=== PATIENT | male | born 1985 | race Caucasian/White ===

== ENCOUNTER 2018-09-07 13:00 | Outpatient (RCR) | payer OTHER, SELFPAY ==
[2018-06-05 09:52] VITALS: BMI 53.8
== END 2018-09-08 23:59 ==
LOC: NS 13:00
PROVIDERS: PCP Internal Medicine; Visit Provider Internal Medicine
DX: E66.01 Morbid (severe) obesity due to excess calories (principal); Z68.43 Body mass index [BMI] 50.0-59.9, adult; Z71.3 Dietary counseling and surveillance
CPT/HCPCS: 97802; 97803

== ENCOUNTER 2018-09-24 11:04 | Outpatient (RCR) | payer OTHER, SELFPAY ==
[2018-06-05 09:52] VITALS: BMI 53.8
== END 2018-10-09 23:59 ==
LOC: NS 11:04
PROVIDERS: PCP Internal Medicine; Visit Provider Internal Medicine
DX: E66.01 Morbid (severe) obesity due to excess calories (principal); Z68.43 Body mass index [BMI] 50.0-59.9, adult; Z71.3 Dietary counseling and surveillance
CPT/HCPCS: 97803

== ENCOUNTER 2018-10-26 11:42 | Outpatient (RCR) | payer OTHER, SELFPAY ==
[2018-06-05 09:52] VITALS: BMI 53.8
== END 2018-11-08 23:59 ==
LOC: NS 11:42
PROVIDERS: PCP Internal Medicine; Visit Provider Internal Medicine
DX: E66.01 Morbid (severe) obesity due to excess calories (principal); Z68.43 Body mass index [BMI] 50.0-59.9, adult; Z71.3 Dietary counseling and surveillance
CPT/HCPCS: 97803

== ENCOUNTER → 2018-11-04 10:28 | Outpatient (CLI) | payer OTHER, SELFPAY ==
[2018-06-05 09:52] VITALS: BMI 53.8
[2018-11-04 11:29] LABS: Absolute Lymphocyte Count 1.77 X10^3/ul (0.83-4.51); Absolute Neutrophil Count 3.3 X10^3/uL (2.0-7.7); Basophil# 0.05 X10^3/uL; Basophil% 0.8 % (0-1); Eosinophil# 0.35 X10^3/uL; Eosinophils% 5.7 % (0-5); Hemoglobin 16.1 g/dl (13.0-16.5); Lymphocyte # 1.77 X10^3/ul (4.0); Lymphocyte % 28.9 % (19-41); Mean Corpuscular Hgb 29.4 pg (27.0-32.0); Mean Corpuscular Volume 83.9 fL (80-94); Mean Platelet Vol. 9.9 fl (6.2-12.0); Monocyte# 0.58 X10^3/uL; Monocyte% 9.5 % (0-10); Neutrophil # 3.34 X10^3/uL (2.7-7.7); Neutrophil % 54.4 % (47-70); Platelet Count 285 K/mm3 (150-450); RBC Distribution Width CV 13.8 % (11.6-14.6); RBC Distribution Width SD 42.2 fl (35.1-43.9); Red Blood Count 5.48 M/mm3 (4.6-6.2); White Blood Count 6.1 K/mm3 (4.4-11.0)
[2018-11-04 11:31] LABS: POSITIVE COUNT NO; POSITIVE DIFFERENTIAL NO; POSITIVE MORPHOLOGY NO
[2018-11-04 11:57] LABS: Hemoglobin A1c 5.3 % (4.2-6.3)
[2018-11-04 12:01] LABS: ALB/GLOB Ratio 1.1 RATIO (0.9-2.4); AST(SGOT) 17 U/L (15-37); Alanine Aminotransfer ALT/SGPT 27 U/L (16-61); Albumin, Serum 3.7 g/dL (3.2-5.0); Alkaline Phosphatase 58 U/L (45-117); Anion Gap 5 (5-15); BUN 14 mg/dL (7-18); BUN/Creat Ratio 17.5 RATIO (10-20); Chloride 111 mmol/L (98-107); Cholesterol 132 mg/dL (200); EST Glomerular Filtration Rate 119 mL/min (>60); Est Glom Filt Rate - Afr Amer 144 mL/min (>60); Globulin 3.4 g/dL (2.2-4.2); Glucose 96 mg/dL (74-106); High Density Lipoprotein 37 mg/dL; Potassium 4.1 mmol/L (3.5-5.1); Protein, Total 7.1 g/dL (6.4-8.2); Sodium Level 142 mmol/L (136-145); Thyroid Stim Hormone (TSH) 2.08 uIU/mL (0.358-3.74); Triglycerides 69 mg/dL; Very Low Density Lipoprotein 14 mg/dL (5-40)
== END ==
LOC: LAB 10:31
PROVIDERS: Family Provider Internal Medicine; PCP Internal Medicine; Referring Provider Internal Medicine; Visit Provider Internal Medicine
DX: E66.01 Morbid (severe) obesity due to excess calories (principal); Z68.43 Body mass index [BMI] 50.0-59.9, adult
CPT/HCPCS: 36415; 80053; 80061; 83036; 84443; 85025

== ENCOUNTER 2018-11-30 11:30 | Outpatient (RCR) | payer OTHER, SELFPAY ==
[2018-06-05 09:52] VITALS: BMI 53.8
== END 2018-11-30 23:59 | disposition home or self-care (01) ==
LOC: NS 11:30
PROVIDERS: Family Provider Internal Medicine; PCP Internal Medicine; Visit Provider Internal Medicine
DX: Z71.3 Dietary counseling and surveillance (principal); E66.01 Morbid (severe) obesity due to excess calories; Z68.43 Body mass index [BMI] 50.0-59.9, adult
CPT/HCPCS: 97803

== ENCOUNTER → 2020-02-16 09:45 | Outpatient (CLI) | payer MEDICAID, SELFPAY ==
[2018-06-05 09:52] VITALS: BMI 53.8
== END ==
PROVIDERS: PCP Family Medicine; Referring Provider Physician Assistant; Visit Provider Physician Assistant
DX: Z20.828 Contact with and (suspected) exposure to other viral communicable diseases (principal)
CPT/HCPCS: 87635; C9803; U0003

== ENCOUNTER → 2021-01-02 08:01 | Outpatient (CLI) | payer MEDICAID, SELFPAY ==
[2021-01-02 10:17] LABS: Absolute Lymphocyte Count 2.48 X10^3/uL (0.83-4.51); Absolute Neutrophil Count 3.7 X10^3/uL (2.0-7.7); Basophil# 0.11 X10^3/uL; Basophil% 1.5 % (0-1); Eosinophil# 0.34 X10^3/uL; Eosinophils% 4.6 % (0-5); Hematocrit 47.3 % (40-54); Hemoglobin 16.1 g/dL (13.0-16.5); Lymphocyte # 2.48 X10^3/ul (0.83-4.51); Lymphocyte % 33.2 % (19-41); Mean Corpuscular Hgb 30.2 pg (27.0-32.0); Mean Corpuscular Volume 88.7 fL (80-94); Mean Platelet Vol. 9.7 fl (6.2-12.0); Monocyte# 0.75 X10^3/uL; Monocyte% 10.1 % (0-10); NRBC Flagged by Analyzer 0 % (0-5); Neutrophil # 3.73 X10^3/uL (2.7-7.7); Neutrophil % 49.9 % (47-70); Platelet Count 293 K/mm3 (150-450); RBC Distribution Width CV 13.3 % (11.6-14.6); RBC Distribution Width SD 43.3 fl (35.1-43.9); Red Blood Count 5.33 M/mm3 (4.6-6.2); White Blood Count 7.5 K/mm3 (4.4-11.0)
[2021-01-02 10:39] LABS: ALB/GLOB Ratio 1.1 RATIO (0.9-2.4); AST(SGOT) 41 U/L (15-37); Alanine Aminotransfer ALT/SGPT 72 U/L (16-61); Alkaline Phosphatase 59 U/L (45-117); Anion Gap 5 (5-15); BUN 10 mg/dL (7-18); BUN/Creat Ratio 12.5 RATIO (10-20); Calcium,Total 8.9 mg/dL (8.5-10.1); Chloride 107 mmol/L (98-107); Cholesterol 157 mg/dL (200); EST Glomerular Filtration Rate 118 mL/min (>60); Est Glom Filt Rate - Afr Amer 143 mL/min (>60); Globulin 3.5 g/dL (2.2-4.2); Glucose 93 mg/dL (74-106); High Density Lipoprotein 36 mg/dL; Potassium 3.5 mmol/L (3.5-5.1); Protein, Total 7.5 g/dL (6.4-8.2); Sodium Level 140 mmol/L (136-145); Thyroid Stim Hormone (TSH) 2.27 uIU/mL (0.358-3.74); Triglycerides 100 mg/dL; Very Low Density Lipoprotein 20 mg/dL (5-40)
== END ==
PROVIDERS: PCP Family Medicine; Referring Provider Nurse Practitioner Family; Visit Provider Nurse Practitioner Family
DX: I10 Essential (primary) hypertension (principal); G47.33 Obstructive sleep apnea (adult) (pediatric); E66.01 Morbid (severe) obesity due to excess calories; Z68.43 Body mass index [BMI] 50.0-59.9, adult
CPT/HCPCS: 36415; 80053; 80061; 83036; 84443; 85025

== ENCOUNTER 2021-01-08 15:36 | Outpatient (RCR) | payer MEDICAID, SELFPAY ==
[2020-12-19 16:36] VITALS: BMI 53.8
== END 2021-01-09 23:59 ==
LOC: NS 15:36
PROVIDERS: PCP Family Medicine; Visit Provider Nurse Practitioner Family
DX: E66.01 Morbid (severe) obesity due to excess calories (principal); Z68.43 Body mass index [BMI] 50.0-59.9, adult
CPT/HCPCS: 97802

== ENCOUNTER → 2021-02-05 21:51 | Outpatient (CLI) | payer MEDICAID, SELFPAY ==
[2020-12-19 16:36] VITALS: BMI 53.8
== END ==
PROVIDERS: PCP Family Medicine; Visit Provider Nurse Practitioner Family
DX: G47.33 Obstructive sleep apnea (adult) (pediatric) (principal)
CPT/HCPCS: 95811

== ENCOUNTER 2021-05-13 15:20 | Emergency (ER) | payer MEDICAID, SELFPAY ==
[2021-05-13 15:21] VITALS: BP 172/107; PULSE 92; RESP 16; TEMP 36.1; O2SAT 96; BMI 54.2
== END 2021-05-13 16:55 | disposition left against medical advice (07) ==
LOC: ED 17:15
PROVIDERS: PCP Family Medicine
DX: M54.50 Low back pain, unspecified (principal); Z53.21 Procedure and treatment not carried out due to patient leaving prior to being seen by health care provider

== ENCOUNTER 2021-07-24 16:29 | Emergency (ER) | payer MEDICAID, SELFPAY ==
[2021-07-24 16:30] VITALS: BP 173/106; PULSE 89; RESP 18; TEMP 36.8; O2SAT 99; BMI 57.2
[2021-07-24 16:36] VITALS: PULSE 94; RESP 15
--- NOTE | 2021-07-24 16:47 | EKG12_ITS ---
Test Reason : CP Blood Pressure : / mmHG Vent. Rate : 087 BPM Atrial Rate : 087 BPM P-R Int : 182 ms QRS Dur : 104 ms QT Int : 380 ms P-R-T Axes : 053 021 054 degrees QTc Int : 457 ms Normal sinus rhythm Normal ECG Confirmed by MARY MAURICIO, CASSI ([id number]), editor at large TUCKER TOMAS ([id number]) on 07/26/2021 9:37:51 AM Referred By: FRANCISCO JAVIER/TENA Confirmed By:CASSI HERNANDEZ MD
--- NOTE | 2021-07-24 16:48 | ED.VIS.CHEST ---
HPI History of Present Illness Chief Complaint: Chest Pain Informant: patient Onset/Context/Timing Onset: Yesterday Activity at onset: - (Woke with pain yesterday more) Timing: Waxes and wanes Quality: Positive for Heaviness and Pressure Location: Substernal and Left Parasternal Current Severity: Moderate Maximum Severity: Moderate Associated Symptoms: Positive for - (Radiates to arms) Narrative Narrative: Patient presents with 2-day history of chest pain. He states he woke yesterday morning with upper chest pain that radiated down both arms. He thought he just slept wrong. He did not feel well all day yesterday. He went to bed around 4:30 in the afternoon after getting home from work. He went to work today but did not feel improved and his encouraged him to come in today to get checked. He does report some mild shortness of breath. PFSH [facility] Medical History Heart murmur History of pneumonia HTN (hypertension) KAUSHIK (obstructive sleep apnea) Tobacco abuse Home Medications amlodipine 5 mg tablet 5 mg PO DAILY #90 tab 02/06/21 [Rx Last Taken Unknown] potassium chloride 20 meq PO BID #8 tab 07/24/21 [Rx Last Taken Unknown] Allergy/AdvReac Type Severity Reaction Status Date / Time bupropion HCl Allergy Other Verified 07/24/21 16:31 [From Wellbutrin] tramadol HCl [From Ultram] Allergy Other Verified 07/24/21 16:31 Family History Grandmother Hypertension Surgical History History of carpal tunnel release History of tonsillectomy and adenoidectomy Social History Smoking Status: Current every day smoker tobacco type: cigarettes and smokeless tobacco Tobacco: How many years used: 13 alcohol intake: current alcohol intake frequency: holidays/special occasions only substance use type: does not use what type of physical activity do you participate in: weight training frequency: 5-6 times per week ROS ROS ED Constitutional Constitutional ED: Denies chills or fever(s) Eyes Eyes: Denies change in vision ENT ENT ED: Denies sore throat Cardiovascular Cardiovascular: Reports chest pain Respiratory/Chest Respiratory/Chest: Reports dyspnea; Denies cough Gastrointestinal Gastrointestinal: Denies abdominal pain, nausea or vomiting Genitourinary Genitourinary ED: Denies dysuria Musculoskeletal Musculoskeletal: Denies back pain Integumentary Denies rash Neurologic Neurologic: Denies headache(s) or weakness Psychiatric Psychiatric: Denies anxiety or depression Allergic/Immunologic Allergic/Immunologic ED: Denies urticaria EXAM Physical Exam Const Vital Signs: 07/24/21 16:30 07/24/21 16:36 07/24/21 17:06 Temperature 98.2 F Temperature Source Temporal Pulse Rate 89 94 Respiratory Rate 18 15 Respiratory Effort Normal Blood Pressure 173/106 H Blood Pressure Mean 128 Pulse Ox 99 Oxygen Delivery Method Room Air Room Air Room Air 07/24/21 19:14 Temperature Temperature Source Pulse Rate 83 Respiratory Rate 18 Respiratory Effort Blood Pressure Blood Pressure Mean Pulse Ox Oxygen Delivery Method Positive obese Nutritional Appearance: obese HEENT Reports moist mucous membranes Eyes PERRL and EOMs intact bilaterally Neck supple Chest Wall inspection of chest normal and palpation of chest normal Resp normal respiratory effort Effort and Inspection: respiratory distress Cardio regular rate and regular rhythm GI normal to inspection, nondistended, normoactive bowel sounds, soft to palpation and non-tender Extremity normal to inspection Neuro oriented x3 Sensorium / Orientation: awake and alert Psych mental status grossly normal Skin no rashes or lesions noted Heart Score History: Moderately Suspicious Age: </= 45 years Risk Factors: 1 or 2 Risk Factors Troponin: </= Normal Limit Score: 2 MDM MDM MDM Narrative Medical decision making narrative: Patient given aspirin on arrival. EKG, chest x-ray, lab work obtained. Lab Data Attestation: I reviewed the patient's lab results. Labs: Laboratory Results - last 24 hr 07/24/21 07/24/21 07/24/21 16:49 16:49 16:49 WBC 9.0 RBC 5.13 Hgb 15.2 Hct 43.2 MCV 84.2 MCH 29.6 MCHC 35.2 RDW Std Deviation 41.4 RDW Coeff of Theresa 13.4 Plt Count 263 MPV 9.1 Immature Gran % (Auto) 0.300 Neut % (Auto) 58.7 Lymph % (Auto) 30.0 [place] % (Auto) 6.0 Eos % (Auto) 4.1 Baso % (Auto) 0.9 Absolute Neuts (auto) 5.3 Absolute Lymphs (auto) 2.70 Nucleated RBC % 0 D-Dimer Quant (PE/DVT) < 0.27 L Sodium 141 Potassium 3.4 L Chloride 106 Carbon Dioxide 30.0 Anion Gap 5 BUN 9 Creatinine 0.86 Estim Creat Clear Calc 128.91 Est GFR (MDRD) Af Amer 131 Est GFR (MDRD) Non-Af 108 BUN/Creatinine Ratio 10.5 Glucose 121 H Calcium 9.2 Troponin I High Sens 6 07/24/21 18:57 WBC RBC Hgb Hct MCV MCH MCHC RDW Std Deviation RDW Coeff of Theresa Plt Count MPV Immature Gran % (Auto) Neut % (Auto) Lymph % (Auto) [place] % (Auto) Eos % (Auto) Baso % (Auto) Absolute Neuts (auto) Absolute Lymphs (auto) Nucleated RBC % D-Dimer Quant (PE/DVT) Sodium Potassium Chloride Carbon Dioxide Anion Gap BUN Creatinine Estim Creat Clear Calc Est GFR (MDRD) Af Amer Est GFR (MDRD) Non-Af BUN/Creatinine Ratio Glucose Calcium Troponin I High Sens 4 Radiography Chest X-Ray - ED: 1 View, Read by ED Physician, Normal, Heart, Lungs and Mediastinum Diagnostic Testing: Clinical Impression(s) from Imaging Studies Chest X-Ray 07/24/21 17:07 IMPRESSION: Normal x-ray examination of the chest. Electronically Signed: Kan Jonas MD at 17:30 EDT , EKG Initial EKG: Attestation: I personally reviewed and interpreted this EKG as follows: Interpretation: Sinus Rhythm (Sinus 87 with no acute ischemia.) Treatment and Re-Evaluation Narrative: On repeat evaluation patient resting comfortably. Test results discussed with him. Lab work reveals a slightly low potassium at 3.4. Initial troponin negative. D-dimer normal. Patient given oral potassium. Chest x-ray per my interpretation is unremarkable. Radiologist interpretation also reviewed. EKG reveals no ischemia. 2-hour delta troponin obtained and also negative. Patient be given 4 additional days of potassium replacement. Blood pressure prior to discharge is 125/63. Patient is to continue to take his blood pressure meds at home. Follow-up with his PCP. Return instructions provided. Discharge Plan Triage Chief Complaint: Chest Pain ED Provider: Minal Parmar Dx/Rx/DC Orders Clinical Impression: Chest pain, Hypokalemia Instructions: ED Chest Pain, Uncertain Cause, ED Hypokalemia Prescriptions: New potassium chloride 20 mEq tablet extended release 20 meq PO BID Qty: 8 RF: 0 No Action amlodipine 5 mg tablet 5 mg PO DAILY Qty: 90 RF: 1 Primary Care Provider: Mason Schmidt Referrals: Mason Schmidt, [Primary Care Provider] - 1 Week Disposition Disposition: Home, Self Care
[2021-07-24 16:56] LABS: Absolute Neutrophil Count 5.3 X10^3/uL (2.0-7.7); Basophil# 0.08 X10^3/uL; Basophil% 0.9 % (0-1); Eosinophil# 0.37 X10^3/uL; Eosinophils% 4.1 % (0-5); Hematocrit 43.2 % (40-54); Hemoglobin 15.2 g/dL (13.0-16.5); Mean Corp Hgb Conc 35.2 g/dL (32-36); Mean Corpuscular Hgb 29.6 pg (27.0-32.0); Mean Corpuscular Volume 84.2 fL (80-94); Mean Platelet Vol. 9.1 fl (6.2-12.0); Monocyte# 0.54 X10^3/uL; NRBC Flagged by Analyzer 0 % (0-5); Neutrophil # 5.29 X10^3/uL (2.7-7.7); Neutrophil % 58.7 % (47-70); Platelet Count 263 K/mm3 (150-450); RBC Distribution Width CV 13.4 % (11.6-14.6); RBC Distribution Width SD 41.4 fl (35.1-43.9); Red Blood Count 5.13 M/mm3 (4.6-6.2)
--- NOTE | 2021-07-24 16:58 | NURSING ---
NO OLD EKGS
[2021-07-24] MEDS: Aspirin 81 MG TAB.CHEW 324 MG PO (17:07)
--- NOTE | 2021-07-24 17:07 | RAD_ITS ---
STUDY: X-RAY CHEST REASON FOR EXAM: Male, 36 years old. Chest pain TECHNIQUE: Single AP portable view of the chest. COMPARISON: None. FINDINGS: The lungs are clear and expanded. There is no demonstrated pleural abnormality. Normal size heart. Normal mediastinum and priscilla. Normal visualized pulmonary arteries. Normal visualized aortic arch and descending thoracic aorta. Normal visualized thoracic spine. Normal visualized ribs, clavicles, and shoulders. There is no demonstrated abnormality of the visualized soft tissue structures of the upper abdomen. RAD/Chest 1 View (Portable) IMPRESSION: Normal x-ray examination of the chest. Electronically Signed: Kan Jonas MD at 17:30 EDT ,
[2021-07-24 17:13] LABS: D-Dimer Quantitative (DVT/PE) < 0.27 FEU/ug/m (0.27-0.49)
[2021-07-24 17:30] LABS: Anion Gap 5 (5-15); BUN 9 mg/dL (7-18); BUN/Creat Ratio 10.5 RATIO (10-20); Calcium,Total 9.2 mg/dL (8.5-10.1); Chloride 106 mmol/L (98-107); Creatinine, Serum 0.86 mg/dL (0.70-1.30); EST Glomerular Filtration Rate 108 mL/min (>60); Est Glom Filt Rate - Afr Amer 131 mL/min (>60); Estimated Creatinine Clearance 128.91 ml/min; Glucose 121 mg/dL (74-106); Potassium 3.4 mmol/L (3.5-5.1); Sodium Level 141 mmol/L (136-145); Troponin-I HS 6 pg/mL (3.0-78.0)
[2021-07-24] MEDS: Potassium Chloride Oral Tablet 20 MEQ 40 MEQ PO (18:08)
[2021-07-24 19:14] VITALS: PULSE 83; RESP 18
[2021-07-24 19:22] LABS: Troponin-I HS 4 pg/mL (3.0-78.0)
[2021-07-24 19:36] VITALS: BP 125/63
== END 2021-07-24 19:40 | disposition home or self-care (01) ==
PROVIDERS: Emergency Provider Emergency Medicine; PCP Family Medicine; Visit Provider Emergency Medicine
DX: R07.9 Chest pain, unspecified (principal); R06.02 Shortness of breath; E87.6 Hypokalemia; I10 Essential (primary) hypertension; G47.33 Obstructive sleep apnea (adult) (pediatric); F17.210 Nicotine dependence, cigarettes, uncomplicated; Z87.01 Personal history of pneumonia (recurrent)
CPT/HCPCS: 71045; 80048; 84484; 85025; 85379; 93005; 99285; A4216

== ENCOUNTER 2022-02-19 00:19 | Emergency (ER) | payer MEDICAID, SELFPAY ==
[2022-02-19 00:19] VITALS: BP 156/78; PULSE 75; RESP 20; TEMP 36.1; O2SAT 98; BMI 56.0
--- NOTE | 2022-02-19 00:51 | RAD_ITS ---
EXAM: XR RIGHT TIBIA AND FIBULA, 2 VIEWS CLINICAL INDICATION: injury/pain TECHNIQUE: Frontal and lateral views of the right tibia and fibula. This report was created using [employer] report generation technology. COMPARISON: Right knee radiographs of 11/06/2015 FINDINGS: BONES/JOINTS: Large posterior calcaneal spur is present. No acute fracture. No dislocation. Normal alignment. Preservation of the joint spaces. No sclerotic or destructive changes observed. SOFT TISSUES: No soft tissue swelling or gas. No radiopaque foreign body. A 5 mm linear opaque density is projected within the subcutaneous fat anterior to the proximal tibia, consistent with a small foreign body which was not present on the prior study. RAD/Tibia & Fibula 2 Views IMPRESSION: No acute fracture or dislocation. Small linear foreign body within the subcutaneous fat anterior to the proximal tibia. Electronically Signed: Ranjan Ferreira MD at 2:08 EDT ,
--- NOTE | 2022-02-19 00:52 | EDS_ITS ---
HPI History of Present Illness Chief Complaint: Lower Extremity Injury Informant: patient Occured/Mechanism Comment: Pain that started suddenly while walking up steps Onset/Context/Timing Onset: Yesterday Context: Sudden Onset Timing: Continuous Quality of Pain: Aching Location: Lateral aspect right lower leg Current Severity: Moderate Maximum Severity: Severe Worsened by: Weightbearing Relieved by: Remaining still/rest Associated Symptoms Associated Symptoms: Negative for Parasthesia, Weakness or Loss of Funtion Narrative Narrative: Patient states he had a sudden onset of pain in the lateral aspect of his right lower leg yesterday while he was walking up some steps. Weightbearing hurts more. Bending his knee and ankle do not hurt more. He states half a day after injuring it, it was extremely painful to even get out of bed. No radiation elsewhere, no numbness in his foot, no pain or injury elsewhere. [facility] Medical History Heart murmur History of pneumonia HTN (hypertension) KAUSHIK (obstructive sleep apnea) Tobacco abuse Home Medications NK 02/19/22 [History Last Taken Unknown] Allergy/AdvReac Type Severity Reaction Status Date / Time bupropion HCl Allergy Other Verified 02/19/22 00:22 [From Wellbutrin] tramadol HCl [From Ultram] Allergy Other Verified 02/19/22 00:22 Family History Grandmother Hypertension Surgical History History of carpal tunnel release History of tonsillectomy and adenoidectomy Social History Smoking Status: Current every day smoker tobacco type: cigarettes and smokeless tobacco Tobacco: How many years used: 13 alcohol intake: current alcohol intake frequency: holidays/special occasions only substance use type: does not use what type of physical activity do you participate in: weight training frequency: 5-6 times per week ROS ROS ED Constitutional Constitutional ED: Denies chills or fever(s) Musculoskeletal Musculoskeletal: Reports extremity pain; Denies neck pain Integumentary Denies Abrasions, rash or wounds Neurologic Neurologic: Denies paresthesias or weakness EXAM Physical Exam Const Vital Signs: 02/19/22 00:19 Temperature 97 F L Temperature Source Temporal Pulse Rate 75 Respiratory Rate 20 H Blood Pressure 156/78 H Blood Pressure Mean 104 Pulse Ox 98 Oxygen Delivery Method Room Air Positive well nourished and well developed Constitutional Narrative: Morbidly obese. General Appearance ED: well developed and NAD Neck full ROM and supple Back/Spine normal ROM and normal to inspection Extremity normal to inspection and full ROM Extremity Narrative: Mild tenderness right proximal fibula. No other areas of bony tenderness throughout the right lower extremity. Full range of motion of the knee and ankle without any pain or difficulty. No effusion at the knee. Neurovascularly intact distally. General Extremety ED: Yes weight-bearing difficulty General Extremity: weight-bearing difficulty Neuro oriented x3, no focal motor deficits and no sensory deficits noted Sensorium / Orientation: alert Psych mental status grossly normal and thought process normal Skin no wounds Rashes: no rashes MDM MDM MDM Narrative Medical decision making narrative: 4 view x-ray series of the right tibia/fibula are negative on my interpretation. No evidence of a fracture or dislocation. The ankle mortise is normal. Patient reassured, supportive care advised and close outpatient follow-up if not improving after a week. He does not have any neurologic symptoms to suggest compromise, his compartments are all soft and he does not have compartment syndrome at this time, nor does it seem like a DVT since he has no palpable cords or edema or calf pain. More likely muscular. Discharge Plan Triage Chief Complaint: Lower Extremity Injury ED Provider: Yuan Casey Dx/Rx/DC Orders Clinical Impression: Pain in right lower leg Instructions: ED Muscle Strain, Extremity Prescriptions: No Action NK Primary Care Provider: Franklyn Dorman Referrals: Mason Schmidt DO [Med Staff - [employer]] - 1 Week if not improving Disposition Disposition: Home, Self Care
== END 2022-02-19 01:49 | disposition home or self-care (01) ==
PROVIDERS: Emergency Provider Emergency Medicine; PCP Family Medicine; Visit Provider Emergency Medicine
DX: M79.661 Pain in right lower leg (principal); I10 Essential (primary) hypertension; G47.33 Obstructive sleep apnea (adult) (pediatric); F17.210 Nicotine dependence, cigarettes, uncomplicated
CPT/HCPCS: 73590; 99282

== ENCOUNTER 2022-12-31 15:47 | Observation (INO) | payer OTHER, MEDICAID, SELFPAY ==
[2022-12-31] VITALS (8 sets, daily range): BP systolic 111–152; BP diastolic 63–78; PULSE 68–92; RESP 13–22; TEMP 35.9–36.5; O2SAT 92–97; BMI 59.8; BMI 57.4
--- NOTE | 2022-12-31 16:53 | CT_ITS ---
We are attempting to reach an attending provider to discuss findings. An addendum with communication details will be sent when the communication is complete. STUDY: CTA HEAD AND NECK WITH CONTRAST REASON FOR EXAM: Male, 37 years old. Neuro deficit, acute, stroke suspected RADIATION DOSAGE (If Supplied By Facility): CTDIvol = ( 37.00 ) mGy, DLP = ( 2178.15 ) mGycm TECHNIQUE: CT angiography was performed with a multi-detector CT scanner. Data acquisition was obtained from the skull base through the vertex following intravenous administration of IV 100mL [id number]-[id number]. MIP images were reconstructed from the axial data set. Post-processing of the angiographic images was performed, with multiplanar reformation and 3D reconstruction. Individualized dose optimization techniques were used for this CT. COMPARISON: No relevant priors. FINDINGS: Normal bilateral petrous carotid arteries. Normal right cavernous carotid artery with a normal supraclinoid bifurcation. Normal left cavernous carotid artery with a normal supraclinoid bifurcation. Normal right A1 segments of the anterior cerebral artery. Normal left A1 segments of the anterior cerebral artery. Normal intact anterior communicating artery (ACOM). Normal bilateral A2 segments of the anterior cerebral arteries. Normal right M1 and M2 segments of the middle cerebral arteries, with a normal M1 bifurcation. Normal left M1 and M2 segments of the middle cerebral arteries, with a normal M1 bifurcation. Normal right posterior communicating artery (PCOM). Normal left posterior communicating artery (PCOM). Normal bilateral vertebral arteries. Normal basilar artery with a normal basilar bifurcation. The visualized bilateral superior cerebellar (SCA) arteries are normal. Normal bilateral P1, P2 and visualized P3 segments of the posterior cerebral arteries. There is no demonstrated aneurysm of the [place] of [place]. There is no demonstrated abnormality of the visualized brain. AORTIC ARCH: Normal visualized aortic arch. Normal origins of the brachiocephalic, left common carotid, and left subclavian arteries. RIGHT CAROTID ARTERIES: Normal right common carotid artery (CCA). Normal right common carotid bulb. Normal origin of the right internal carotid (ICA) artery without a hemodynamically significant stenosis. Normal visualized cervical portion of the right internal carotid artery. Normal origin of the right external carotid artery (ECA). LEFT CAROTID ARTERIES: Normal left common carotid artery (CCA). Normal left common carotid bulb. Normal origin of the left internal carotid (ICA) artery without a hemodynamically significant stenosis. Normal visualized cervical portion of the left internal carotid artery. Normal origin of the left external carotid artery (ECA). VERTEBRAL ARTERIES: Normal bilateral vertebral arteries. IMPRESSION: Normal CTA Head and neck with contrast. Electronically Signed: Jamey Haley MD at 18:20 EDT , INDICATION: Neuro deficit, acute, stroke suspected EXAMINATION: CT BRAIN - CT Head Stroke Protocol W/O Contrast Injection TECHNIQUE: Multiple axial images were obtained of the head without intravenous contrast. A radiation dose optimization technique was used for this scan. IV Contrast dosage and agent: None. COMPARISON: No relevant prior comparison study available FINDINGS: BRAIN PARENCHYMA: No intra- or extra-axial hemorrhage. No evidence of acute infarct. No intracranial mass or mass effect. There is preservation of the mandel/white matter interface. Posterior fossa structures are unremarkable. CSF SPACES: Appropriate for age. No hydrocephalus. Basal cisterns are patent. CALVARIUM, SKULL BASE, PARANASAL SINUSES AND MASTOID AIR CELLS: Clear. No discrete lytic or blastic abnormalities. ORBITS: Both globes, extraocular muscles, optic nerves and retrobulbar fat appear unremarkable. ASPECTS Score for Acute Strokes: 10 CT/STROKE CTA Head AND Neck W/Con IMPRESSION: Negative Brain CT without contrast. Electronically Signed: Jamey Haley MD at 18:24 EDT ,
[2022-12-31 17:13] LABS: Absolute Lymphocyte Count 2.25 X10^3/uL (0.83-4.51); Absolute Neutrophil Count 4.1 X10^3/uL (2.0-7.7); Basophil# 0.08 X10^3/uL; Basophil% 1.1 % (0-1); Eosinophil# 0.35 X10^3/uL; Eosinophils% 4.7 % (0-5); Hematocrit 45.3 % (40-54); Hemoglobin 15.7 g/dL (13.0-16.5); Lymphocyte # 2.25 X10^3/ul (0.83-4.51); Lymphocyte % 30.4 % (19-41); Mean Corp Hgb Conc 34.7 g/dL (32-36); Mean Corpuscular Hgb 31.2 pg (27.0-32.0); Mean Corpuscular Volume 89.9 fL (80-94); Monocyte# 0.61 X10^3/uL; Monocyte% 8.2 % (0-10); NRBC Flagged by Analyzer 0 % (0-5); Neutrophil # 4.06 X10^3/uL (2.7-7.7); Neutrophil % 54.9 % (47-70); Platelet Count 233 K/mm3 (150-450); RBC Distribution Width CV 13.9 % (11.6-14.6); RBC Distribution Width SD 45.6 fl (35.1-43.9); Red Blood Count 5.04 M/mm3 (4.6-6.2); White Blood Count 7.4 K/mm3 (4.4-11.0)
--- NOTE | 2022-12-31 17:17 | RAD_ITS ---
STUDY: X-RAY CHEST REASON FOR EXAM: Male, 37 years old. Neuro deficit, acute, stroke suspected TECHNIQUE: Single AP portable view of the chest. COMPARISON: 07/24/2021. FINDINGS: The lungs are clear and expanded. There is no demonstrated pleural abnormality. Normal size heart. Normal mediastinum and priscilla. Normal visualized pulmonary arteries. Normal visualized aortic arch and descending thoracic aorta. Normal visualized thoracic spine. Normal visualized ribs, clavicles, and shoulders. There is no demonstrated abnormality of the visualized soft tissue structures of the upper abdomen. RAD/Chest 1 View IMPRESSION: Normal x-ray examination of the chest. Electronically Signed: Jamey Haley MD at 17:34 EDT ,
--- NOTE | 2022-12-31 17:28 | EDS_ITS ---
HPI History of Present Illness Chief Complaint: Headache Narrative Narrative: 37-year-old male presenting with headache. He states he was sitting at his desk when he noticed he started to get a right-sided headache that radiated into the jaw on the jaw became numb. He states he felt a little bit lightheaded which resolved. He was able to get up and go out to start working and still complains of having a headache. He went to see the nurse at the facility and she did vital signs which were normal and sent him to the ER for further evaluation. Patient still complaining of numbness in the right side of the jaw. No slurred speech no confusion no visual deficits, able to use all 4 extremities. Patient states he does not have any history of stroke. He has past medical history of hypertension, sleep apnea, obesity. No cardiac history. He does not have any history of migraine. [facility] [place] Medical History Heart murmur History of pneumonia HTN (hypertension) KAUSHIK (obstructive sleep apnea) Tobacco abuse Home Medications NK 02/19/22 [History Last Taken Unknown] Allergy/AdvReac Type Severity Reaction Status Date / Time tramadol HCl [From Ultram] Allergy Unknown Other Verified 12/31/22 19:08 bupropion HCl Allergy seizures Verified 12/31/22 19:08 [From Wellbutrin] Family History Grandmother Hypertension Surgical History History of carpal tunnel release History of tonsillectomy and adenoidectomy Social History household members: family Smoking Status: Current every day smoker tobacco type: cigarettes and smokeless tobacco Tobacco: How many years used: 13 alcohol intake: current alcohol intake frequency: holidays/special occasions only substance use type: does not use what type of physical activity do you participate in: weight training frequency: 5-6 times per week ROS ROS ED Constitutional Constitutional ED: Denies chills, fever(s) or sweats Eyes Eyes: Denies blurry vision or change in vision ENT ENT ED: Denies ear pain or sore throat Cardiovascular Cardiovascular: Denies chest pain, palpitations or racing heartbeat Respiratory/Chest Respiratory/Chest: Denies cough, dyspnea or sputum Gastrointestinal Gastrointestinal: Denies abdominal pain, constipation, diarrhea, nausea or vomiting Genitourinary Genitourinary ED: Denies dysuria, hematuria or urinary frequency Musculoskeletal Musculoskeletal: Denies arthralgias, myalgias or neck pain Integumentary Denies abscess, Abrasions or rash Neurologic Neurologic: Reports headache(s) and other Details: Right jaw numbness ; Denies paresthesias or weakness Psychiatric Psychiatric: Denies anxiety, depression, suicidal ideation or suicidal thoughts Endocrine Endocrinology: Denies polydipsia or polyuria EXAM Physical Exam Const Vital Signs: 12/31/22 15:48 12/31/22 16:53 12/31/22 17:03 Temperature 96.7 F L Temperature Source Temporal Pulse Rate 76 82 Respiratory Rate 22 H 13 Blood Pressure 152/78 H 137/75 H Blood Pressure Mean 102 95 Pulse Ox 95 92 92 Oxygen Delivery Method Room Air Room Air 12/31/22 17:04 Temperature Temperature Source Pulse Rate 92 Respiratory Rate 18 Blood Pressure 137/75 H Blood Pressure Mean 95 Pulse Ox 92 Oxygen Delivery Method Room Air Positive well nourished General Appearance ED: NAD; Negative for pallor HEENT Reports normocephalic HEENT Narrative: No pain over right hoahaoism atraumatic and trauma Eyes PERRL and EOMs intact bilaterally Neck no lymphadenopathy and supple Resp normal respiratory effort Auscultation: Negative for rales, rhonchi or wheezes Cardio regular rate and regular rhythm Back/Spine no CVA tenderness Extremity normal to inspection and full ROM Neuro oriented x3 Marni Coma Scale: document GCS findings Spontaneous Obeys Commands Oriented 15 Sensorium / Orientation: awake and alert Coordination / Balance: [id number] test normal Speech: speech normal Motor Exam: strength 5/5 throughout Psych mental status grossly normal Skin General Skin Exam: Negative for jaundice or pallor NIHSS NIHSS Initial: 1a Level of Consciousness: 0 1b LOC Questions (Score 2 if aphasic/stupor): 0 1c LOC Commands (Only score 1st attempt): 0 2 Best Gaze (If aphasic, use reflexive mvmts.): 0 3 Visual: 0 4 Facial Palsy: 0 5 Motor Arm Right (UN = amputation/fusion): 0 5 Motor Arm Left: 0 6 Motor Leg Right: 0 6 Motor Leg Left: 0 7 Limb ataxia (Only + if out of proportion): 0 8 Sensory (Aphasia/stupor=0 or 1, coma=2): 1 9 Best Language: 0 10 Dysarthria (mute, coma=2, intubated=UN): 0 11 Extinction and Inattention (only scored if +): 0 Total Score: 1 MDM MDM MDM Narrative Medical decision making narrative: Patient presenting with headache and visual disturbance which resolved. Is now jaw numbness. Differential includes atypical migraine, intracranial hemorrhage, stroke, temporal arteritis. NIH stroke scale score of 1 for numbness on the jaw. Rest of his exam is normal. CBC will be obtained to assess white blood cell count, hemoglobin, platelets. PT/INR to assess for coagulopathy. Renal function electrolytes will be obtained. High-sensitivity troponin and EKG obtained to assess for ischemia or dysrhythmia. CRP and ESR be obtained. CT brain and CTA were obtained and were negative. CBC and BMP unremarkable. High- sensitivity troponin is 5. EKG on my interpretation shows a normal sinus rhythm with a ventricular of 70 bpm without sign of ischemic change. ESR was in the within normal limits. CRP minimally elevated at 6.59. Patient does not have any temporal pain. I do believe this is likely temporal arteritis. His vision is normal as well. Discussed with the hospitalist for admission given he has a stroke scale score 1 due to numbness on the face. He is admitted in stable condition. Impression 1. Facial numbness 2. Headache Lab Data Attestation: I reviewed the patient's lab results. Labs: Laboratory Results - last 24 hr 12/31/22 17:00 WBC 7.4 RBC 5.04 Hgb 15.7 Hct 45.3 MCV 89.9 MCH 31.2 MCHC 34.7 RDW Std Deviation 45.6 H RDW Coeff of Theresa 13.9 Plt Count 233 MPV 9.0 Immature Gran % (Auto) 0.700 Neut % (Auto) 54.9 Lymph % (Auto) 30.4 [place] % (Auto) 8.2 Eos % (Auto) 4.7 Baso % (Auto) 1.1 H Absolute Neuts (auto) 4.1 Absolute Lymphs (auto) 2.25 Nucleated RBC % 0 ESR 4 PT 12.7 INR 1.0 APTT 26.8 Sodium 141 Potassium 4.2 Chloride 107 Carbon Dioxide 29.0 Anion Gap 5 BUN 14 Creatinine 0.82 Estim Creat Clear Calc 133.92 Est GFR (MDRD) Af Amer 136 Est GFR (MDRD) Non-Af 113 BUN/Creatinine Ratio 17.0 Glucose 106 Calcium 8.8 Troponin I High Sens 5 C-React Prot Ext Range 6.59 H Radiography Diagnostic Testing: Clinical Impression(s) from Imaging Studies Head/Neck CTA 12/31/22 16:53 IMPRESSION: Negative Brain CT without contrast. Electronically Signed: Jamey Haley MD at 18:24 EDT , ADDENDUM: 12/31/22 1831 IMPRESSION: Negative Brain CT without contrast. N.B. : The above Results were Read Back by Jamey Haley MD to Ld Patel,DO, and understanding confirmed on 12/31/2022 18:24:50 (ET). Electronically Signed: Jamey Haley MD at 18:24 EDT , Chest X-Ray 12/31/22 17:17 IMPRESSION: Normal x-ray examination of the chest. Electronically Signed: Jamey Haley MD at 17:34 EDT , Discharge Plan Triage Chief Complaint: Headache ED Provider: Ld Patel Dx/Rx/DC Orders Primary Care Provider: Care Physician,No Primary
[2022-12-31 17:29] LABS: Prothrombin Time (Protime)PT. 12.7 SECONDS (11.7-14.9)
[2022-12-31 17:30] LABS: Partial Thromboplast Time 26.8 Seconds (24.1-36.2)
[2022-12-31 17:31] LABS: Anion Gap 5 (5-15); BUN 14 mg/dL (7-18); Calcium,Total 8.8 mg/dL (8.5-10.1); Chloride 107 mmol/L (98-107); Creatinine, Serum 0.82 mg/dL (0.70-1.30); EST Glomerular Filtration Rate 113 mL/min (>60); Est Glom Filt Rate - Afr Amer 136 mL/min (>60); Estimated Creatinine Clearance 133.92 ml/min; Glucose 106 mg/dL (74-106); Potassium 4.2 mmol/L (3.5-5.1); Sodium Level 141 mmol/L (136-145); Troponin-I HS 5 pg/mL (3.0-78.0)
[2022-12-31] MEDS: Metoclopramide 10 MG/2 ML Vial IV (17:38)
[2022-12-31] MEDS: DiphenhydrAMINE 50 MG/ML Syringe 25 MG IV (17:38)
[2022-12-31 17:49] LABS: Erythrocyte Sedimentation Rate 4 mm/hr (0-20)
[2022-12-31 17:56] LABS: CRP 6.59 mg/L (0.0-3.0)
--- NOTE | 2022-12-31 18:36 | PCM.HP.STD ---
HPI - General General Date of Admission: 12/31/22 Date of Service: 01/15/23 Chief Complaint: Headache and facial numbness HPI Narrative MARIE MOORE, is a 37 M came to ED wall he had a right-sided headache but but it then spread over to the left side and became bilateral frontal headache. He denies jaw pain. He had all teeth removed and upper jaw and left side of the lower jaw. He has dental caries. He responded good with Tylenol in the ED and headache has almost resolved. He also complained of right-sided facial numbness/jaw numbness. No slurred speech confusion or visual deficit. Patient moving all 4 extremities and denies any focal weakness. Patient denies any prior history of stroke In ED, twelve-lead EKG was done which shows normal sinus to 70 bpm, QTc 432 ms. Last EKG in July 2021 was also normal sinus rhythm. Head and neck CTA was done which was reported as negative without contrast. Normal x-ray of the chest. [facility] Medical History Heart murmur History of pneumonia HTN (hypertension) KAUSHIK (obstructive sleep apnea) Tobacco abuse Home Medications NK 02/19/22 [History Last Taken Unknown] Allergy/AdvReac Type Severity Reaction Status Date / Time bupropion HCl Allergy Other Verified 12/31/22 15:57 [From Wellbutrin] tramadol HCl [From Ultram] Allergy Other Verified 12/31/22 15:57 Family History Grandmother Hypertension Surgical History History of carpal tunnel release History of tonsillectomy and adenoidectomy Social History household members: family Smoking Status: Current every day smoker tobacco type: cigarettes and smokeless tobacco Tobacco: How many years used: 13 alcohol intake: current alcohol intake frequency: holidays/special occasions only substance use type: does not use what type of physical activity do you participate in: weight training frequency: 5-6 times per week ROS ROS Narrative Constitutional: Reports mild acute fatigue and generalized weakness. No fever. HEENT: Reports systems reviewed and no addt'l complaints, except as documented Respiratory/Chest: No acute shortness of breath or respiratory distress or wheezing. CVS: No chest pain or pressure. Gastrointestinal: Denies coffee ground emesis, hematemesis or vomiting Genitourinary: Denies burning urination or new urinary tract symptoms Musculoskeletal: Denies acute joint pain or limited range of motion. No acute injury Neurologic: Denies seizure-like symptoms. Rest as described in HPI skin: No ulcer. No rash Endocrinology: Reports systems reviewed and no addt'l complaints, except as documented Hematologic/Lymphatic: Reports systems reviewed and no addt'l complaints, except as documented Rest 14 ROS are negative except as mentioned in HPI Vital Signs Vital Signs Vital Signs: 12/31/22 15:48 12/31/22 16:53 12/31/22 17:03 Temperature 96.7 F L Temperature Source Temporal Pulse Rate 76 82 Respiratory Rate 22 H 13 Blood Pressure 152/78 H 137/75 H Blood Pressure Mean 102 95 Pulse Ox 95 92 92 Oxygen Delivery Method Room Air Room Air 12/31/22 17:04 Temperature Temperature Source Pulse Rate 92 Respiratory Rate 18 Blood Pressure 137/75 H Blood Pressure Mean 95 Pulse Ox 92 Oxygen Delivery Method Room Air Weight Weight: 429 lb 7.367 oz Body Mass Index (BMI) 59.8 Physical Exam Narrative General: Alert, Oriented x3, Cooperative, morbid obesity BMI 59.9 kg/m?. HEENT: Atraumatic, PERRLA, EOMI, Normocephalic Oral: No teeth in upper jaw. Noted thin right side of lower jaw. Rest of the teeth in lower jaw dental caries but no tenderness on exam. Gingivitis and rest of the tooth. Neck: Supple, No JVD, Negative Carotid Bruits Lungs: Air entry diminished in bilateral lung bases. No crepitation/rhonchi Cardiovascular: Regular rate, Regular Rhythm, Normal S1, Normal S2, No murmurs Abdomen: Bowel Sounds Present, Soft, Non Tender, Non-Distended : No renal angle tenderness. No suprapubic tenderness. Extremities: No edema, Capillary Refill Less than 3 Seconds Skin: No rashes, No breakdown Musculoskeletal: No Tenderness to Palpation of Joints or Extremities. ROM limited due to morbid obesity. Can keep lower extremities for 5 seconds upper EXTR is for 10 seconds. Neurological: Cranial nerves II-XII grossly intact, DTR 2+/4. No acute focal neurological deficit. NIH scale 0. Psych/Mental Status: Normal Affect, Appropriate. Results Lab / Micro Data 12/31/22 17:00 12/31/22 17:00 Labs: Laboratory Results - last 24 hr 12/31/22 17:00: WBC 7.4, RBC 5.04, Hgb 15.7, Hct 45.3, MCV 89.9, MCH 31.2, MCHC 34.7, RDW Std Deviation 45.6 H, RDW Coeff of Theresa 13.9, Plt Count 233, MPV 9.0, Immature Gran % (Auto) 0.700, Neut % (Auto) 54.9, Lymph % (Auto) 30.4, [place] % (Auto) 8.2, Eos % (Auto) 4.7, Baso % (Auto) 1.1 H, Absolute Neuts (auto) 4.1, Absolute Lymphs (auto) 2.25, Nucleated RBC % 0, ESR 4, PT 12.7, INR 1.0, APTT 26.8, Sodium 141, Potassium 4.2, Chloride 107, Carbon Dioxide 29.0, Anion Gap 5, BUN 14, Creatinine 0.82, Estim Creat Clear Calc 133.92, Est GFR (MDRD) Af Amer 136, Est GFR (MDRD) Non-Af 113, BUN/Creatinine Ratio 17.0, Glucose 106, Calcium 8.8, Troponin I High Sens 5, C-React Prot Ext Range 6.59 H Radiology Impression Head/Neck CTA 12/31/22 16:53 IMPRESSION: Negative Brain CT without contrast. Electronically Signed: Jamey Haley MD at 18:24 EDT , ADDENDUM: 12/31/22 1831 IMPRESSION: Negative Brain CT without contrast. N.B. : The above Results were Read Back by Jamey Haley MD to Ld Patel,DO, and understanding confirmed on 12/31/2022 18:24:50 (ET). Electronically Signed: Jamey Haley MD at 18:24 EDT , Chest X-Ray 12/31/22 17:17 IMPRESSION: Normal x-ray examination of the chest. Electronically Signed: Jamey Haley MD at 17:34 EDT , Assessment & Plan Assessment/Plan (1) Numbness: PLAN: Plan 1. Acute numbness of right side of face and jaw area: Patient is being admitted to PCU. As per ER physician NIH stroke scale 1 but but [address] head and neck was reported negative. MRI brain without contrast ordered. PT, OT, speech therapy/swallow evaluation and management, nursing NIH stroke scale, BP and glucose monitoring and control as per stroke protocol. TSH, A1c fasting lipid profile tomorrow AM. MRI brain and 2D echo study ordered 2. Hypertension: Patient not on antihypertensive medications at home. Blood pressure in ED in hypertensive permissive range. Monitor BP. 3. Morbid obesity. Obstructive sleep apnea: CPAP ordered. BMI 59.9 kg/m?. Weight loss counseling done. 4. Chronic cigarette smoking/nicotine use dependence: Patient smokes about 12 to 13 cigarettes/day. Advised quitting smoking. Nicotine patch ordered. DVT prophylaxis, high risk due to morbid obesity: Lovenox 40 mg subcu daily ordered. CODE STATUS: Patient does not have a living will or advanced directive. Patient's and his children near the bedside in ED. Full code verified. Laboratory Results 12/31/22 17:00: WBC 7.4, RBC 5.04, Hgb 15.7, Hct 45.3, MCV 89.9, MCH 31.2, MCHC 34.7, RDW Std Deviation 45.6 H, RDW Coeff of Theresa 13.9, Plt Count 233, MPV 9.0, Immature Gran % (Auto) 0.700, Neut % (Auto) 54.9, Lymph % (Auto) 30.4, [place] % (Auto) 8.2, Eos % (Auto) 4.7, Baso % (Auto) 1.1 H, Absolute Neuts (auto) 4.1, Absolute Lymphs (auto) 2.25, Nucleated RBC % 0, ESR 4, PT 12.7, INR 1.0, APTT 26.8, Sodium 141, Potassium 4.2, Chloride 107, Carbon Dioxide 29.0, Anion Gap 5, BUN 14, Creatinine 0.82, Estim Creat Clear Calc 133.92, Est GFR (MDRD) Af Amer 136, Est GFR (MDRD) Non-Af 113, BUN/Creatinine Ratio 17.0, Glucose 106, Calcium 8.8, Troponin I High Sens 5, C-React Prot Ext Range 6.59 H Clinical Impression(s) from Imaging Studies Head/Neck CTA 12/31/22 16:53 IMPRESSION: Negative Brain CT without contrast. Chest X-Ray 12/31/22 17:17
--- NOTE | 2022-12-31 19:36 | ECHOCS_ITS ---
Reason For Study: CVA/TIA Procedure This was a 2D Doppler, Color Flow transthoracic echocardiogram. The study was technically difficult. Exam performed portable in patient room. Left Ventricle Normal LV size. Mild concentric left ventricular hypertrophy. The left ventricular ejection fraction is 65 %. Normal diastology for age. Right Ventricle Normal right ventricle. Atria The left and right atria are normal. Bubble contrast study is positive for PFO. Mitral Valve Trivial mitral valve insufficiency. Tricuspid Valve Normal tricuspid valve. Aortic Valve Trisinus/trileaflet aortic valve. Pulmonic Valve The pulmonic valve is not well visualized. Great Vessels Mildly dilated aortic root. Pericardium/Pleural No pericardial effusion. Medication Diluted definity 2ml given slow IV push to enhance endocardial definition. MMode/2D Measurements & Calculations LVIDd: 5.8 cm IVSd: 1.2 cm LVOT diam: 2.3 cm LVIDs: 3.8 cm LVPWd: 0.89 cm RVDd: 4.2 cm FS: 34.7 % LVOT area: 4.1 cm2 Ao root diam: 3.8 cm LAV(MOD-bp): 47.0 ml LVAd ap4: 44.4 cm2 LAV(MOD-bp) Indexed: 16.4 ml/m2 LVLd ap4: 8.7 cm LAV(MOD-sp2): 55.9 ml EDV(MOD-sp4): 183.8 ml LAV(MOD-sp4): 37.6 ml EDV(sp4-el): 192.6 ml LVAs ap4: 28.7 cm2 LVLs ap4: 7.4 cm ESV(MOD-sp4): 94.5 ml ESV(sp4-el): 94.9 ml EF(MOD-sp4): 48.6 % EF(sp4-el): 50.8 % LVAd ap2: 38.7 cm2 SV(MOD-sp4): 89.3 ml SV(MOD-sp2): 75.2 ml LVLd ap2: 7.9 cm EDV(MOD-sp2): 148.0 ml EDV(sp2-el): 160.1 ml LVAs ap2: 24.9 cm2 LVLs ap2: 7.0 cm ESV(MOD-sp2): 72.8 ml ESV(sp2-el): 75.6 ml EF(MOD-sp2): 50.8 % SV(sp4-el): 97.8 ml LA dimension(2D): 4.2 cm LA A4 area: 16.7 cm2 RA A4 area: 16.9 cm2 TAPSE: 2.0 cm Time Measurements MV dec time: 0.20 sec Doppler Measurements & Calculations MV E max john: 76.1 cm/sec Lat Peak E' John: 11.2 cm/sec Med Peak E' John: 8.9 cm/sec MV A max john: 55.7 cm/sec E/E' lat: 6.8 E/E' med: 8.6 MV E/A: 1.4 Ao V2 max: 94.3 cm/sec LV V1 max: 82.0 cm/sec MV dec slope: 384.3 cm/sec2 Ao max P.6 mmHg LV V1 max P.7 mmHg Ao V2 mean: 67.8 cm/sec LV V1 mean P.6 mmHg Ao mean P.0 mmHg LV V1 mean: 61.2 cm/sec Ao V2 VTI: 22.4 cm LV V1 VTI: 19.1 cm AV (velocity ratio): 0.85 SANTO(I,D): 3.5 cm2 SANTO(V,D): 3.6 cm2 SV(LVOT): 78.6 ml PA V2 max: 63.6 cm/sec PA max PG (full): 0.64 mmHg ECHO/Echo Complete W/ Contrast Interpretation Summary Mild concentric left ventricular hypertrophy. The left ventricular ejection fraction is 65 %. Bubble contrast study is positive for PFO. Mildly dilated aortic root. The study was technically difficult. Ordering Physician: Narciso Phoenix Performed By: Deborah Mills RDCS
--- NOTE | 2022-12-31 19:36 | MRI_ITS ---
EXAM: MR HEAD WITHOUT INTRAVENOUS CONTRAST CLINICAL INDICATION: TIA. R JAW NUMBNESS, HEADACHE TECHNIQUE: Multiplanar and multisequence MR images of the brain were obtained without intravenous contrast. COMPARISON: CT head without contrast 12/31/2022. FINDINGS: BRAIN AND EXTRA-AXIAL SPACES: No intra- or extra-axial hemorrhage. No diffusion restriction to suspect acute or subacute ischemic infarct. No remote ischemic infarcts. No mass effects and no midline shift. SELLA: Unremarkable. Normal sella turcica, pituitary gland, infundibular stalk, optic chiasm and hypothalamus. AUDITORY SYSTEM: Unremarkable. The internal auditory canals are patent. BONES/JOINTS: T2 FLAIR artifact in the right parietal lobe is also confirmed on the coronal T2-weighted images. No discrete lytic or blastic abnormalities. SINUSES: Unremarkable as visualized. Clear. MASTOID AIR CELLS: Unremarkable as visualized. Clear. ORBITS: Unremarkable as visualized. Both globes, extraocular muscles, optic nerves and retrobulbar fat appear unremarkable. VASCULATURE: Unremarkable as visualized. Normal flow voids in the major intracranial circulation. MRI/Brain without Contrast IMPRESSION: No MRI evidence of acute or subacute ischemic infarct or remote ischemic infarct. Electronically Signed: Familia Rivera MD at 11:22 EDT ,
[2022-12-31] MEDS: 0.9% Normal Saline 1,000 ML 75 ML IV (21:05)
[2022-12-31] MEDS: Atorvastatin Calcium 80 MG Tablet PO (21:05)
[2022-12-31] MEDS: Aspirin E.C. 81 MG Tablet PO (21:05)
[2022-12-31] MEDS: Enoxaparin 40 MG/0.4 ML Syringe SC (21:05)
[2023-01-01 00:45] VITALS: O2SAT 96
[2023-01-01 03:50] VITALS: BP 126/70; PULSE 65; RESP 16; TEMP 36.4; O2SAT 95
[2023-01-01 06:03] LABS: Cholesterol 141 mg/dL (200); High Density Lipoprotein 35 mg/dL; Thyroid Stim Hormone (TSH) 1.59 uIU/mL (0.358-3.74); Triglycerides 128 mg/dL; Very Low Density Lipoprotein 26 mg/dL (5-40)
[2023-01-01 06:30] VITALS: BP 144/77; PULSE 70; RESP 16; TEMP 36.4; O2SAT 97
[2023-01-01 07:54] VITALS: O2SAT 98
[2023-01-01 08:06] LABS: Hemoglobin A1c 5.1 % (3.8-5.6)
[2023-01-01 08:21] VITALS: BP 131/78; PULSE 87; RESP 16; O2SAT 97
[2023-01-01] MEDS: LORazepam 1 MG Tablet PO (09:03)
[2023-01-01] MEDS: Aspirin E.C. 81 MG Tablet PO (09:04)
[2023-01-01 10:00] VITALS: BP 134/67; PULSE 79; RESP 16; O2SAT 96
[2023-01-01] MEDS: Enoxaparin 40 MG/0.4 ML Syringe SC (10:58)
--- NOTE | 2023-01-01 12:21 | DCINST_ITS ---
Discharge Instructions Diet Discharge Diet: Low fat / Low cholesterol Activity Discharge Activity: Return to Normal Activity Weight Bearing Status: Weight bearing as tolerated Dressing / Incision Call your doctor if you observe: Fever of 101 or Higher, Shortness of breath, Dizziness, Swelling in the ankles and Chest pain Follow Up Care Test Results: Test results from this visit will be discussed in further detail at your follow- up appointment, if applicable. Discharge Plan Admission Admit Date/Time: 12/31/22 18:23 Primary Reason for Your Visit: TIA Attending Provider: Dinorah Gatica Primary Care Provider: Care Physician,No Primary Consulting Providers: Narciso Phoenix Instructions Patient Instructions: TIA Dc Discharge Orders/Prescriptions Prescriptions: New aspirin 81 mg Tablet,Delayed Release (Dr/Ec) 81 mg PO BREAKFAST Qty: 30 1RF Referrals / Follow Up: Franklyn Dorman MD [Non-Staff] - Within 1 Week Care Physician,No Primary [Primary Care Provider] - Perico Loredo MD [Non-Staff -Ordering Privileges] - Within 2 Weeks Disposition Disposition (needs filled in before D/C Order can be placed): Home, Self Care
--- NOTE | 2023-01-01 12:22 | DS.PCM_ITS ---
Providers Date of Admission: 12/31/22 Date of Discharge: 01/01/23 Primary Care Physician: Skylar Primary Care Phys Reason For Visit: NUMBNESS OF FACE Diagnosis Discharge Diagnosis (1) Numbness: Status: Acute Code(s): R20.0 - Anesthesia of skin Medications at Discharge Home Medications aspirin 81 mg tablet,delayed release 81 mg PO BREAKFAST #30 tabs 01/01/23 Hospital Course Operations None Procedures 2-D Echocardiogram Summary of Care Provided Minutes Spent on Discharge: 47 Hospital Course: Patient is a 37 y/o male with a PMH as outlined who was admitted via the ED on 12/31/2022 with a complaint of right sided headache which subsequently became a bilateral frontal headache. He had had all his teeth removed due to dental caries. Headache improved with tylenol; he also complained of right sided facial numbness and jaw numbness but had no slurred speech, confusion or visual deficit. He was moving all extremities. HE had no history of a stroke. Review of systems was otherwise negative. EKG showed no acute ST changes and CTA head which showed no hemodynamically significant stenosis. CXR showed no acute ST changes. He was admitted and managed for TIA to rule out a stroke. MRI of the brain showed no acute intracranial pathology. 2D echo showed EF of 65% and bubble study was positive for PFO. He was placed on PO aspirin 81mg daily, and is to follow up with his PCP and was referred to neurology on outpatient basis. He was discharged home on 01/01/2023. He is to follow up with his PCP and was referred to cardiology also on outpatient basis. Patient seen and examined. He had no complaints and had an uneventful night. Review of systems is otherwise negative. Labs and vitals reviewed. Home meds reviewed and examined. Physical Exam Const alert, oriented x3 and no apparent distress General Appearance: cooperative, comfortable and well developed Orientation / Consciousness: awake Exam Limitations: no limitations Nutritional Appearance: obese HEENT Mouth: oral and palatal mucosa normal Eyes PERRL, EOMs intact bilaterally and conjunctivae normal Neck no lymphadenopathy and supple Resp normal respiratory effort, no retractions, no use of accessory muscles and clear to auscultation bilaterally Cardio regular rate, regular rhythm, S1 normal heart sound, S2 normal heart sound and no murmurs GI normal to inspection, nondistended, normoactive bowel sounds, soft to palpation, non-tender and non-distended Extremity normal to inspection and full ROM Skin no rashes or lesions noted and no wounds Skin Narrative: multiple tattoos Neuro oriented x3, CN's II-XII intact bilaterally, moves all extremities, no focal motor deficits and no sensory deficits noted Sensorium / Orientation: awake and alert Motor Exam: strength 5/5 throughout Psych affect normal Weight / BMI Weight Weight: 411 lb 9.648 oz Body Mass Index (BMI) 57.4 ABG / Lab / Microbiology Data 12/31/22 17:00 12/31/22 17:00 Laboratory: Laboratory Results - last 24 hr 12/31/22 17:00: WBC 7.4, RBC 5.04, Hgb 15.7, Hct 45.3, MCV 89.9, MCH 31.2, MCHC 34.7, RDW Std Deviation 45.6 H, RDW Coeff of Theresa 13.9, Plt Count 233, MPV 9.0, Immature Gran % (Auto) 0.700, Neut % (Auto) 54.9, Lymph % (Auto) 30.4, [place] % (Auto) 8.2, Eos % (Auto) 4.7, Baso % (Auto) 1.1 H, Absolute Neuts (auto) 4.1, Absolute Lymphs (auto) 2.25, Nucleated RBC % 0, ESR 4, PT 12.7, INR 1.0, APTT 26.8, Sodium 141, Potassium 4.2, Chloride 107, Carbon Dioxide 29.0, Anion Gap 5, BUN 14, Creatinine 0.82, Estim Creat Clear Calc 133.92, Est GFR (MDRD) Af Amer 136, Est GFR (MDRD) Non-Af 113, BUN/Creatinine Ratio 17.0, Glucose 106, Calcium 8.8, Troponin I High Sens 5, C-React Prot Ext Range 6.59 H 01/01/23 05:00: Hemoglobin A1c 5.1, Triglycerides 128, Cholesterol 141, LDL Cholesterol 80, VLDL Cholesterol 26, HDL Cholesterol 35 L, TSH 1.59 Radiography Diagnostic Testing: Radiology Impression Head/Neck CTA 12/31/22 16:53 IMPRESSION: Negative Brain CT without contrast. Electronically Signed: Jamey Haley MD at 18:24 EDT , ADDENDUM: 12/31/22 1831 IMPRESSION: Negative Brain CT without contrast. N.B. : The above Results were Read Back by Jamey Haley MD to Ld Patel,DO, and understanding confirmed on 12/31/2022 18:24:50 (ET). Electronically Signed: Jamey Haley MD at 18:24 EDT , Chest X-Ray 12/31/22 17:17 IMPRESSION: Normal x-ray examination of the chest. Electronically Signed: Jamey Haley MD at 17:34 EDT , Brain MRI 12/31/22 19:36 IMPRESSION: No MRI evidence of acute or subacute ischemic infarct or remote ischemic infarct. Electronically Signed: Familia Rivera MD at 11:22 EDT , Echocardiogram 12/31/22 19:36 Interpretation Summary Mild concentric left ventricular hypertrophy. The left ventricular ejection fraction is 65 %. Bubble contrast study is positive for PFO. Mildly dilated aortic root. The study was technically difficult. Ordering Physician: Narciso Phoenix Performed By: Deborah Mills RDCS D/C Instructions Discharge Diet: Low fat / Low cholesterol Discharge Activity: Return to Normal Activity Weight Bearing Status: Weight bearing as tolerated Call your doctor if you observe: Fever of 101 or Higher, Shortness of breath, Dizziness, Swelling in the ankles and Chest pain Meaningful Use Info Meaningful Use Diagnoses (Choose all that apply): None applicable Discharge Plan Admission Admit Date/Time: 12/31/22 18:23 Primary Reason for Your Visit: TIA Attending Provider: Dinorah Gatica Primary Care Provider: Care Physician,No Primary Consulting Providers: Narciso Phoenix Instructions Patient Instructions: XOCHITL Dc Discharge Orders/Prescriptions Prescriptions: New aspirin 81 mg Tablet,Delayed Release (Dr/Ec) 81 mg PO BREAKFAST Qty: 30 1RF Referrals / Follow Up: Tom Maldonado MD [Med Staff - Active Staff] - Within 2 Weeks (follow up to establish care for PFO found on echo) Franklyn Dorman MD [Non-Staff] - Within 1 Week Perico Loredo MD [Non-Staff -Ordering Privileges] - Within 2 Weeks Care Physician,No Primary [Primary Care Provider] - Disposition Disposition (needs filled in before D/C Order can be placed): Home, Self Care Charges/Coding Visit Charges Inpatient E&M: 81010 Disch Hosp >30min
--- NOTE | 2023-01-01 13:03 | CHAPLAIN ---
Type of Pastoral Visit _x__ Initial Visit ___ Follow-up Visit ___ On-call Visit ___ General Patient Visit ___ Spiritual Assessment ___ Family Conference ___ Bereavement ___ Rapid Response ___ Code Blue ___ Other (describe below) Pastoral Care Referral From _x__ Patient ___ Family ___ Nurse ___ Physician ___ Customer Service Supervisor ___ Brim Stitcher ___ Other (describe below) Sacrament/Intervention ___ Active listening ___ Anointing ___ Yarsanism ___ Bereavement ___ Communion ___ Mehnaz exploration ___ ___ Life review ___ Prayer ___ Reconciliation ___ Sacrament of Sick _x__ Supportive presence ___ Wedding ___ Other (describe below) Pastoral Comments patient had just returned from MRI; pt is offered support and time to reflect on his experience; otherwise pt states that he is doing fine and has no other needs at this time
--- NOTE | 2023-01-01 13:03 | PHA.DC.MR.R ---
Pharmacy [facility] Med Reconciliation Pharmacy Service has performed discharge medication reconciliation for this patient. Medication education papers prepared but patient was discharged when counseling was attempted. The patient's discharge medication list was reviewed for discrepancies and discrepancies were resolved. Medications at Discharge Home Medications aspirin 81 mg tablet,delayed release 81 mg PO BREAKFAST #30 tabs 01/01/23
[2023-01-01 13:19] VITALS: BMI 57.4
--- NOTE | 2023-01-01 15:51 | CASEMGMT ---
Social Work Stroke work up negative. PHQ9 not completed. PAVAN Wood
== END 2023-01-01 13:35 | disposition home or self-care (01) ==
LOC: ED 17:33 → PCU 18:55
PROVIDERS: Admitting Provider Internal Medicine; Emergency Provider Student in an Organized Health Care Education/Training Program; Visit Provider Student in an Organized Health Care Education/Training Program
DX: R20.0 Anesthesia of skin (principal); Z68.43 Body mass index [BMI] 50.0-59.9, adult; E66.01 Morbid (severe) obesity due to excess calories; I10 Essential (primary) hypertension; F17.210 Nicotine dependence, cigarettes, uncomplicated; R51.9 Headache, unspecified; G47.33 Obstructive sleep apnea (adult) (pediatric); F17.220 Nicotine dependence, chewing tobacco, uncomplicated; I34.0 Nonrheumatic mitral (valve) insufficiency
CPT/HCPCS: 36415; 70496; 70498; 70551; 71045; 80048; 80061; 83036; 84443; 84484; 85025; 85610; 85652; 85730; 86140; 92610; 93005; 93306; 94762; 96361; 96372; 96374; 96375; 99221; 99285; 99406; J7030; Q9957; Q9967; A4216; C8929; G0378

== ENCOUNTER → 2023-04-10 | Outpatient (CLI) | payer OTHER, SELFPAY ==
--- NOTE | 2023-04-10 11:13 | RAD_ITS ---
STUDY: X-RAY - RIGHT KNEE REASON FOR EXAM: Male, 37 years old. Right knee pain TECHNIQUE: 4 view(s) of the knee. COMPARISON: Comparison is made with prior study dated November 06, 2015. FINDINGS: Normal visualized distal femur. Normal visualized proximal tibia and fibula. Normal proximal tibiofibular articulation. Normal medial femorotibial compartment. Normal lateral femorotibial compartment. Normal patellofemoral articulation. The soft tissue structures are unremarkable. RAD/Knee 4 or More Views IMPRESSION: Normal x-ray examination of the knee. Electronically Signed: Jay Cordero MD at 11:52 EST ,
== END | disposition home or self-care (01) ==
LOC: MTRAD 11:13
PROVIDERS: Referring Provider Physician Assistant Surgical; Visit Provider Physician Assistant Surgical
DX: S86.911A Strain of unspecified muscle(s) and tendon(s) at lower leg level, right leg, initial encounter (principal); X58.XXXA Exposure to other specified factors, initial encounter
CPT/HCPCS: 73564